=== PATIENT | female | born 1950 | race Caucasian/White ===

== ENCOUNTER → 2016-04-18 | Outpatient (CLI) | payer OTHER, MEDICARE | LOC: FIMAGING 12:53 | DX: Z12.31 Encounter for screening mammogram for malignant neoplasm of breast (principal) | CPT/HCPCS: G0202 ==

== ENCOUNTER 2017-01-06 16:06 | Emergency (ER) | payer OTHER, MEDICARE ==
[2017-01-06 16:19] VITALS: RESP 16
[2017-01-06 16:20] VITALS: TEMP 98.5
--- NOTE | 2017-01-06 16:40 | EDPHY ---
H & P Time Seen by Provider: 01/06/17 16:27 HPI/ROS: CHIEF COMPLAINT: Right leg swelling HISTORY OF PRESENT ILLNESS: The patient is a 66 year old female on hormone replacement therapy and smoker who presents emergency department with right lower extremity swelling. This is been present for the past 2 days. She has no pain. No recent trauma. No recent travel. No fevers or chills. No chest pain or shortness of breath. The patient had laboratory studies and ultrasound performed by primary care physician Dr. Crow. She was sent to the emergency department because of a positive ultrasound. REVIEW OF SYSTEMS: My complete review of systems is negative except as mentioned in the HPI. Past Medical/Surgical History: Includes hypertension, hormone replacement therapy Past surgical history: Includes recent gynecologic cyst removal Social history: The patient smokes Smoking Status: Heavy smoker Physical Exam: Vitals noted. GENERAL: Well-appearing, in no acute distress, alert. HEENT: Eyes normal to inspection, normal pharynx, no signs of dehydration. NECK: No thyromegaly, no lymphadenopathy, supple. RESPIRATORY: Clear to auscultation bilaterally, no rales, rhonchi or wheezing. CVS: Regular rate and rhythm, no rubs, murmurs, or gallops. ABDOMEN: Soft, nontender, nondistended, no organomegaly. BACK: Normal to inspection, no CVA tenderness. SKIN: Normal color, no rash, warm, dry. No pallor. EXTREMITIES: Mild right lower extremity pedal edema, no calf tenderness, no Homans sign or cords, no joint swelling. NEURO/PSYCH: Alert and oriented x3, normal mood and affect, normal motor sensory exam. Constitutional: Initial Vital Signs Temperature (C) 36.9 C 01/06/17 16:15 Heart Rate 85 01/06/17 16:15 Respiratory Rate 16 01/06/17 16:15 Blood Pressure 129/78 H 01/06/17 16:15 O2 Sat (%) 98 01/06/17 16:15 O2 Delivery Mode Room Air Allergies/Adverse Reactions: codeine Allergy (Unknown, Verified 07/05/14 09:34) Nausea, passes out Home Medications: Medication Instructions Recorded Lisinopril [Zestril] 10 mg PO DAILY 07/05/14 Naproxen Sodium [Aleve] 220 mg PO DAILY 07/05/14 [place]-3 Fatty Acids [Fish Oil] 1,000 mg PO DAILY 07/05/14 Psyllium Husk [Metamucil] 1 cap PO DAILY 07/05/14 RX: Bupropion HCl [Wellbutrin Xl] 300 mg PO DAILY 07/05/14 RX: Cholecalciferol (Vitamin D3) 2,000 unit PO DAILY 07/05/14 [Vitamin D3] RX: Estradiol 0.75 mg PO DAILY 07/05/14 RX: Hydrochlorothiazide [HCTZ (*)] 12.5 mg PO DAILY 07/05/14 medroxyPROGESTERone ACETATE 5 mg PO DAILY 07/05/14 [Provera 5 mg] Apixaban [Eliquis] 10 mg PO BID #14 tab 01/06/17 Medical Decision Making - Diagnostics Imaging Results: Imaging Impressions Extremity Venous Study 01/06/17 14:37 Impression: High popliteal DVT extending into the mid calf. Results called to Dr. Crow at 3:05 PM Chest X-Ray 01/06/17 16:41 Impression: Normal. No evidence for pulmonary infarction. ED Course/Re-evaluation: I reviewed the patient's ultrasound report. It is noted that she has a high popliteal DVT extending to the mid calf. I discussed this result with the patient. I discussed the case with Dr. Crow. He recommended the patient have an EKG and chest x-ray prior to discharge from the emergency department. These were ordered. EKG shows normal sinus rhythm, normal rate, normal axis, normal intervals. There are no ST or T-wave abnormalities. EKG is normal as interpreted by me. Chest x-ray: No acute disease I reviewed the patient's laboratory studies from earlier today. Her renal function is normal. Patient was noted to have a elevated D dimer I discussed all results with the patient. I answered her questions. She is given warnings prior to leaving. She is given a dose of Eliquis prior to leaving the emergency department. She was given a prescription for Eliquis 10 mg twice daily. This will be followed by Eliquis 5 mg twice daily. This will be read by primary care physician. She is given instructions to follow up with primary care physician in 1-2 days. Differential Diagnosis: My differential includes but is not limited to DVT, pulmonary embolus, cellulitis, trauma, factor 5 Leiden, protein S deficiency Departure - Departure Disposition: Home, Routine, Self-Care Clinical Impression: DVT (deep venous thrombosis) Qualifiers: DVT location: lower extremity Affected thrombotic vein of extremity: popliteal Chronicity: acute Laterality: right Qualified Code(s): I82.431 - Acute embolism and thrombosis of right popliteal vein Condition: Good Instructions: Deep Venous Thrombosis (ED) Additional Instructions: Your ultrasound showed a DVT. This will need to be treated with medication. Both smoking and hormone replacement therapy are risk factors for DVT formation. You been started on a medication called Eliquis. You will take 10 mg twice a day for the next 7 days. The you will then take Eliquis 5 mg twice a day moving forward. Your primary care physician needs to write a prescription for your treatment after the 1st 7 days. Referrals: Micheal Pedro MD [Primary Care Provider] - 2-3 days, call for appt. Prescriptions: Apixaban [Eliquis] 10 mg PO BID #14 tab
[2017-01-06] MEDS ORDERED: APIXABAN 5 MG TAB PO ONE (16:45)
--- NOTE | 2017-01-06 17:00 | CPEKG ---
Heart Rate: 71 RR Interval: 845 P-R Interval: 156 QRSD Interval: 100 QT Interval: 432 QTC Interval: 470 P [place]: 67 QRS [place]: 16 T Wave [place]: 63 EKG Severity - OTHERWISE NORMAL ECG - EKG Impression: SINUS RHYTHM EKG Impression: LOW VOLTAGE IN FRONTAL LEADS Electronically Signed By: Kaye Davis 06-Jan-2017 20:04:28
[2017-01-06 17:09] VITALS: BP 130/87; PULSE 80; O2SAT 96
== END 2017-01-06 17:19 | disposition home or self-care (01) ==
LOC: EDSTATUS 16:07
DX: I82.431 Acute embolism and thrombosis of right popliteal vein (principal); F17.200 Nicotine dependence, unspecified, uncomplicated; I10 Essential (primary) hypertension

== ENCOUNTER → 2017-03-01 | Outpatient (CLI) | payer OTHER, MEDICARE | LOC: FIMAGING 16:11 | PROVIDERS: ATTEND Internal Medicine | DX: M25.471 Effusion, right ankle (principal); Z86.718 Personal history of other venous thrombosis and embolism ==

== ENCOUNTER → 2017-04-17 | Outpatient (CLI) | payer OTHER, MEDICARE | LOC: FIMAGING 11:43 | PROVIDERS: ATTEND Nurse Practitioner Obstetrics & Gynecology | DX: Z12.31 Encounter for screening mammogram for malignant neoplasm of breast (principal) ==

== ENCOUNTER → 2017-08-28 | Outpatient (CLI) | payer OTHER, MEDICARE | LOC: BMCIMAGING 08:11 | PROVIDERS: ATTEND Physician Assistant | DX: M17.0 Bilateral primary osteoarthritis of knee (principal) ==

== ENCOUNTER → 2017-12-26 | Outpatient (CLI) | payer OTHER, MEDICARE | LOC: FIMAGING 08:39 | PROVIDERS: ATTEND Internal Medicine | DX: R22.1 Localized swelling, mass and lump, neck (principal); Z86.718 Personal history of other venous thrombosis and embolism; M71.21 Synovial cyst of popliteal space [Baker], right knee ==

== ENCOUNTER → 2018-02-16 | Outpatient (CLI) | payer OTHER, MEDICARE | LOC: FIMAGING 08:23 | PROVIDERS: ATTEND Orthopaedic Surgery | DX: M17.11 Unilateral primary osteoarthritis, right knee (principal) ==

== ENCOUNTER 2018-03-05 12:15 | Inpatient (IN) | payer OTHER, MEDICARE ==
--- NOTE | 2018-03-19 06:23 | PDHPUP ---
History & Physical Update H&P update statement: This history and physical update is based on an assessment of the patient which was completed after admission or registration (within 24 hours), but prior to the surgery/procedure. H&P update: no change in patient's condition since H&P completed
--- NOTE | 2018-03-19 06:24 | PDIAF ---
- Diagnosis Diagnosis: right knee djd Code Status: Full Code - Medication Management Discharge Medications: electronically signed and located in the Home Medication List. - Orders Services needed: Home Care, Physical Therapy Home Care Face to Face: I certify that this patient was under my care and that I had the required [id number] encounter meeting the encounter requirements on the discharge day. My findings support the fact that the patient is homebound as defined in Home Care Face to Face Continued: CMS Chapter 7 Medicare Benefits Manual 30.1.1 , The condition of the patient is such that there exists a normal inability to leave home and consequently, leaving home would require a considerable and taxing effort. Isolation Type: None Diet Recommendation: no restrictions on diet Diet Texture: Regular Texture Diet Additional Instructions: TOTAL JOINT ARTHROPLASTY DISCHARGE INSTRUCTIONS 1. Your surgeon follows the [facility] protocol for reducing your risk of DVT (blood clots) following surgery. Medication will be ordered to prevent blood clots. A sudden increase in calf pain and/or swelling could indicate a blood clot in your leg. If this occurs, please call your surgeon or his/her diagnostic assistant. An ultrasound of the leg may be necessary to diagnose a blood clot. If you have conditions that make you a higher risk for blood clots, your surgeon may use more aggressive ways to prevent them. Notify your surgeon if you think you are a high risk for blood clots. 2. Wear your white surgical stockings (JENNIE hose) for 2 weeks. This decreases your swelling and may help prevent blood clots. It is ok to remove JENNIE hose at night time to give your legs a break. 3. Swelling and bruising in the surgical leg is common. If you feel that it is excessive, please notify your surgeon. 4. Elevate your surgical leg with the ankle above the hip several times every day. Please keep the leg straight when you elevate by putting pillows under your foot. Do not put pillows under your knee. This will make being able to fully straighten more difficult. This is uncomfortable, but try to do it as much as possible. 5. For total knee replacements use compressive wrap on your knee for 3-5 days after surgery, then you can discontinue it. 6. Use a walker or crutches for 1-2 weeks. Progress your weight-bearing as tolerated. You may start to use a cane when you feel stable and safe. 7. You will receive physical therapy instructions in the hospital. Continue those exercises at home. There are additional exercises in the total joint booklet you were given before surgery. Outpatient physical therapy will begin 7- 10 days after surgery. Please schedule this in advance. 8. Use ice on your knee at least 3-5 times every day for 30 minutes. This helps reduce pain and swelling. Also use it at night before falling asleep. 9. Leave your surgical dressing in place for 2 weeks. Your dressing is water resistant, but not waterproof. Cover it with Saran Wrap or Jmyey-m-Efmq before showering. You may shower as soon as you feel safe entering a shower. If you notice bleeding from your incision 2 or 3 days after surgery, please notify your surgeon. 10. Due to narcotics, decreased activity and altered diet, most patients experience constipation after surgery. Use nxva-zkj-grwykes stool softeners while you are on narcotics. 11. You may drive a car when you are comfortable bearing weight, have good muscular control of your leg and are off narcotics. This usually occurs 2-4 weeks after surgery, depending on which leg was operated on. 12. If there are questions not addressed here, please refer the [facility] book given for more information. If you still have questions, please contact your surgeon s office. 13. If you have a life-threatening emergency, please call 911 and go to the emergency room immediately. For non-life threatening emergencies, please call your physicians office for advice before going to the emergency room. - Follow Up Care Current Providers and Referrals: Micheal Pedro MD [Primary Care Provider] - Jong Baires MD [Medical Doctor] -
[2018-03-19] MEDS ORDERED: LR 1,000 ML IV ONE (07:12)
[2018-03-19] MEDS ORDERED: THROMBIN (BOVINE) 5,000 UNIT VIAL TP ONE (07:33)
[2018-03-19] MEDS ORDERED: CALCIUM CHLORIDE 1 GM/10 ML INJ ONE (07:34)
[2018-03-19] MEDS ORDERED: ceFAZolin 1 GM/5 ML SYR ONE (07:35)
[2018-03-19] MEDS ORDERED: ROPIVACAINE 0.2% 80 MG, EPINEPHrine 0.2 MG, KETOROLAC TROMETHAMINE 30 MG in SYRINGE 0 ML IU ONE (08:00)
[2018-03-19] MEDS ORDERED: DEXAMETHASONE 4 MG/ML VIAL IVP ONE (08:00)
[2018-03-19] MEDS ORDERED: ACETAMINOPHEN 325 MG TAB PO ONE (08:00)
[2018-03-19] MEDS ORDERED: FAMOTIDINE 20 MG TAB PO ONE (08:00)
[2018-03-19] MEDS ORDERED: TRANEXAMIC ACID 1,000 MG in NS 100 ML IV ONE (08:00)
[2018-03-19] MEDS ORDERED: VANCOMYCIN PHARMACY TO DOSE MISC ONE (08:00)
[2018-03-19] MEDS ORDERED: BUPIVACAINE/DEXTROSE 7.5MG/ML 2 ML SPINAL AMP SP ONE (08:44)
[2018-03-19] MEDS ORDERED: PROPOFOL/EMULSION 500 MG/50 ML BOTTLE IV ONE ×2 (08:44→10:22)
[2018-03-19] MEDS ORDERED: MIDAZOLAM 2 MG/2 ML VIAL IVP ONE (08:50)
--- NOTE | 2018-03-19 08:51 | PDANEPAE ---
ANE History of Present Illness right knee pain ANE Past Medical History - Cardiovascular History Hx Hypertension: Yes Hx Arrhythmias: No Hx Chest Pain: No Hx Coronary Artery / Peripheral Vascular Disease: No Hx CHF / Valvular Disease: No Hx Palpitations: No - Pulmonary History Hx COPD: No Hx Asthma/Reactive Airway Disease: No Hx Recent Upper Respiratory Infection: No Hx Oxygen in Use at Home: No Hx Sleep Apnea: No Sleep Apnea Screening Result - Last Documented: Positive Pulmonary History Comment: hot tub lung - Neurologic History Hx Cerebrovascular Accident: No Hx Seizures: No Hx Dementia: No - Endocrine History Hx Diabetes: No Hypothyroid: No Hyperthyroid: No Obesity: mild - Renal History Hx Renal Disorders: No - Liver History Hx Hepatic Disorders: No - Neurological & Psychiatric Hx Hx Neurological and Psychiatric Disorders: Yes Neurological / Psychiatric History Comment: wellbutrin - Cancer History Hx Cancer: No - Congenital Disorder History Hx Congenital Disorders: No - GI History GERD: no Hx Gastrointestinal Disorders: No - Other Health History Other Health History: partial upper with case. hx of blood clots in right leg - Chronic Pain History Chronic Pain: No (lower back) - Surgical History Prior Surgeries: shoulder sx. knee scopes ANE Review of Systems Review of systems is: negative Review of Systems: - Exercise capacity Exercise capacity: >=4 METS METS (RN): 4 METS ANE Patient History - Allergies Allergies/Adverse Reactions: codeine Allergy (Unknown, Verified 03/12/18 11:08) Nausea, passes out Penicillins Allergy (Verified 03/12/18 11:08) ITCH - Home Medications Home Medications: Aspirin EC [Aspirin EC 81 mg (*)] 162 mg PO DAILY 03/05/18 [Last Taken 03/05/18] Bupropion HCl [Wellbutrin Xl] 300 mg PO DAILY 03/05/18 [Last Taken 03/19/18] Herbals/Supplements -Info Only 1 ea PO DAILY 03/05/18 [Last Taken 03/19/18] Hydrochlorothiazide [Hydrochlorothiazide] 25 mg PO DAILY 03/05/18 [Last Taken ] Lisinopril [Lisinopril] 10 mg PO DAILY 03/05/18 [Last Taken 03/19/18] - NPO status NPO Status: no food or drink >8 hours NPO Since - Liquids (Date): 03/18/18 NPO Since - Liquids (Time): 23:00 NPO Since - Solids (Date): 03/18/18 NPO Since - Solids (Time): 23:00 - Anes Hx Anes Hx: no prior problems - Smoking Hx Smoking Status: Former smoker - Family Anes Hx Family Anes Hx: none Family Hx Anesthesia Complications: none ANE Labs/Vital Signs - Vital Signs Vital Signs: reviewed preoperatively; see RN documention for details Blood Pressure: 101/71 Heart Rate: 70 Respiratory Rate: 22 O2 Sat (%): 93 Height: 165.1 cm Weight: 84.368 kg ANE Physical Exam - Airway Neck exam: FROM Mallampati Score: Class 2 Mouth exam: normal dental/mouth exam - Pulmonary Pulmonary: no respiratory distress - Cardiovascular Cardiovascular: regular rate and rhythym - ASA Status ASA Status: II ANE Anesthesia Plan Anesthesia Plan: spinal Regional Anesthesia: adductor canal FNB
[2018-03-19] MEDS ORDERED: ceFAZolin 2 GM/DEXTROSE 100 ML IV ONE (09:30)
[2018-03-19] MEDS ORDERED: ROPIVACAINE HCL 150 MG/30 ML INJ ONE (11:04)
[2018-03-19] MEDS ORDERED: BISACODYL 10 MG SUPP PR PRN (11:07)
[2018-03-19] MEDS ORDERED: DIPHENOXYLATE/ATROPINE LOMOTIL 1 TAB PO PRN (11:07)
[2018-03-19] MEDS ORDERED: TEMAZEPAM 15 MG CAP PO PRN (11:07)
[2018-03-19] MEDS ORDERED: ONDANSETRON DISINTEGRATING 4 MG TAB PO PRN (11:07)
[2018-03-19] MEDS ORDERED: CYCLOBENZAPRINE 10 MG TAB PO PRN (11:07)
[2018-03-19] MEDS ORDERED: ONDANSETRON 4 MG/2 ML VIAL IVP PRN ×2 (11:07→12:14)
[2018-03-19] MEDS ORDERED: PROMETHAZINE HCL 25 MG SUPPR PR PRN (11:07)
[2018-03-19] MEDS ORDERED: MAGNESIUM HYDROXIDE 30 ML UDCUP PO PRN (11:07)
[2018-03-19] MEDS ORDERED: LACTULOSE 20 GM/30 ML UDCUP PO PRN (11:07)
[2018-03-19] MEDS ORDERED: diphenhydrAMINE 25 MG CAP PO PRN (11:07)
[2018-03-19] MEDS ORDERED: METOCLOPRAMIDE 10 MG/2 ML VIAL IVP PRN ×2 (11:07→12:14)
[2018-03-19] MEDS ORDERED: POLYETHYLENE GLYCOL 3350 17 GM PKT PO PRN (11:07)
[2018-03-19] MEDS ORDERED: PROMETHAZINE HCL 25 MG/ML INJ IVP PRN ×2 (11:07→12:14)
--- NOTE | 2018-03-19 11:07 | POSTOPPROG ---
Post Op Note Date of Operation: 03/19/18 Surgeon: Jong Baires Chuck Splitter: madan Anesthesiologist: matthew Anesthesia: Spinal Pre-op Diagnosis: right knee djd Post-op Diagnosis: same Indication: same Procedure: right tka Inf/Abcess present in the surg proc area at time of surgery?: No Depth: Deep Incisional (Fascial) EBL: 100-500
[2018-03-19] MEDS ORDERED: LR 1,000 ML IV SCH (11:30)
[2018-03-19] MEDS ORDERED: LR 500 ML IV PRN (12:14)
[2018-03-19] MEDS ORDERED: LABETALOL HCL 5 MG/ML 20 ML MDV IVP PRN (12:14)
[2018-03-19] MEDS ORDERED: ACETAMINOPHEN 500 MG TAB PO PRN (12:14)
[2018-03-19] MEDS ORDERED: NALOXONE HCL 0.4 MG/ML INJ IVP PRN (12:14)
[2018-03-19] MEDS ORDERED: DEXAMETHASONE 4 MG/ML VIAL IVP PRN (12:14)
[2018-03-19] MEDS ORDERED: MEPERIDINE 25 MG/0.5 ML AMP IVP PRN (12:14)
[2018-03-19] MEDS ORDERED: HYDROmorphONE/DILAUDID 2 MG/ML INJ IVP PRN (12:14)
[2018-03-19] MEDS ORDERED: ALBUTEROL 3 ML DEYVIAL IH PRN (12:14)
[2018-03-19] MEDS ORDERED: PHENYLEPHRINE HCL 100 MCG/ML SYR IVP PRN (12:14)
[2018-03-19] MEDS ORDERED: fentaNYL 100 MCG/2 ML INJ IVP PRN (12:14)
[2018-03-19] MEDS ORDERED: oxyCODONE IR 5 MG TAB PO PRN (12:14)
--- NOTE | 2018-03-19 13:08 | PDMN ---
Medical Necessity Medical necessity: [facility] S700 Knee Arthroplasty, Total, A-2days: 67 yo sp R TKA. IP status for >65 years plus hx HTN, +CLAUDIA, 'hot tub lung,' mild obesity, DVTs
[2018-03-19] MEDS: TRANEXAMIC ACID 650 MG TAB PO SCH ×2 (13:20→21:30)
[2018-03-19] MEDS: ACETAMINOPHEN 325 MG TAB PO SCH ×3 (13:21→23:57)
--- NOTE | 2018-03-19 16:45 | POSTANESTH ---
Post Anesthetic Evaluation Cardiovascular Status: Normal, Stable Respiratory Status: Normal, Stable Level of Consciousness/Mental Status: Can Participate in Eval Pain Control: Adequate, Prn Tx Ordered Nausea/Vomiting Control: Adequate, Prn Tx Ordered Complications Possibly Related to Anesthesia: None Noted
[2018-03-19] MEDS: oxyCODONE IR 5 MG TAB PO PRN ×3 (16:50→21:28)
[2018-03-19] MEDS: ceFAZolin 2 GM/DEXTROSE 100 ML IV SCH (18:10)
[2018-03-19] MEDS: SENNOSIDES/DOCUSATE SODIUM TAB PO SCH (21:30)
[2018-03-19] MEDS: FAMOTIDINE 20 MG TAB PO SCH (21:43)
[2018-03-19] MEDS: ASPIRIN 325 MG TAB PO SCH (21:43)
[2018-03-20] MEDS: ceFAZolin 2 GM/DEXTROSE 100 ML IV SCH (00:27)
[2018-03-20] MEDS: oxyCODONE IR 5 MG TAB PO PRN ×4 (00:28→12:04)
[2018-03-20] MEDS: ACETAMINOPHEN 325 MG TAB PO SCH ×2 (04:57→12:05)
[2018-03-20] MEDS: TRANEXAMIC ACID 650 MG TAB PO SCH (04:57)
--- NOTE | 2018-03-20 07:44 | PDIAF ---
- Diagnosis Diagnosis: right knee djd Code Status: Full Code - Medication Management Discharge Medications: electronically signed and located in the Home Medication List. - Orders Services needed: Home Care, Physical Therapy Home Care Face to Face: I certify that this patient was under my care and that I had the required [id number]-ivvk encounter meeting the encounter requirements on the discharge day. My findings support the fact that the patient is homebound as defined in Home Care Face to Face Continued: CMS Chapter 7 Medicare Benefits Manual 30.1.1 , The condition of the patient is such that there exists a normal inability to leave home and consequently, leaving home would require a considerable and taxing effort. Isolation Type: None Diet Recommendation: no restrictions on diet Diet Texture: Regular Texture Diet Additional Instructions: TOTAL JOINT ARTHROPLASTY DISCHARGE INSTRUCTIONS 1. Your surgeon follows the [facility] protocol for reducing your risk of DVT (blood clots) following surgery. Medication will be ordered to prevent blood clots. A sudden increase in calf pain and/or swelling could indicate a blood clot in your leg. If this occurs, please call your surgeon or his/her food and beverage assistant manager. An ultrasound of the leg may be necessary to diagnose a blood clot. If you have conditions that make you a higher risk for blood clots, your surgeon may use more aggressive ways to prevent them. Notify your surgeon if you think you are a high risk for blood clots. 2. Wear your white surgical stockings (JENNIE hose) for 2 weeks. This decreases your swelling and may help prevent blood clots. It is ok to remove JENNIE hose at night time to give your legs a break. 3. Swelling and bruising in the surgical leg is common. If you feel that it is excessive, please notify your surgeon. 4. Elevate your surgical leg with the ankle above the hip several times every day. Please keep the leg straight when you elevate by putting pillows under your foot. Do not put pillows under your knee. This will make being able to fully straighten more difficult. This is uncomfortable, but try to do it as much as possible. 5. For total knee replacements use compressive wrap on your knee for 3-5 days after surgery, then you can discontinue it. 6. Use a walker or crutches for 1-2 weeks. Progress your weight-bearing as tolerated. You may start to use a cane when you feel stable and safe. 7. You will receive physical therapy instructions in the hospital. Continue those exercises at home. There are additional exercises in the total joint booklet you were given before surgery. Outpatient physical therapy will begin 7- 10 days after surgery. Please schedule this in advance. 8. Use ice on your knee at least 3-5 times every day for 30 minutes. This helps reduce pain and swelling. Also use it at night before falling asleep. 9. Leave your surgical dressing in place for 2 weeks. Your dressing is water resistant, but not waterproof. Cover it with Saran Wrap or Llonq-s-Xhxc before showering. You may shower as soon as you feel safe entering a shower. If you notice bleeding from your incision 2 or 3 days after surgery, please notify your surgeon. 10. Due to narcotics, decreased activity and altered diet, most patients experience constipation after surgery. Use yeus-dfo-osxrmnm stool softeners while you are on narcotics. 11. You may drive a car when you are comfortable bearing weight, have good muscular control of your leg and are off narcotics. This usually occurs 2-4 weeks after surgery, depending on which leg was operated on. 12. If there are questions not addressed here, please refer the [facility] book given for more information. If you still have questions, please contact your surgeon s office. 13. If you have a life-threatening emergency, please call 911 and go to the emergency room immediately. For non-life threatening emergencies, please call your physicians office for advice before going to the emergency room. - Follow Up Care Current Providers and Referrals: Micheal Pedro MD [Primary Care Provider] - Jong Baires MD [Medical Doctor] -
--- NOTE | 2018-03-20 07:46 | SOAPPROG ---
SOAP Progress Note Assessment/Plan: Assessment: s/p tka Plan: d/c home dvt precautions reviewed f/u at two weeks seek attn for increasing symptoms 03/20/18 07:44 Subjective: mild pain no cp or sob Objective: Vital Signs Temp Pulse Resp BP Pulse Ox 36.7 C 56 L 16 105/65 95 03/20/18 04:00 03/20/18 04:00 03/20/18 04:00 03/20/18 04:00 03/20/18 04:00 Laboratory Results 03/20/18 04:25 03/19/18 03/20/18 03/21/18 05:59 05:59 05:59 Intake Total 2185 Output Total 730 Balance 1455 dressing intact intact pf,df,ehl toes warm and pink neg homans kailyn xrays stable anatomic alignement, no fx or lucency ICD10 Worksheet Patient Problems: Problems Problem Status Onset Arthritis of knee Acute - ICD10 Problem Qualifiers (1) Arthritis of knee
[2018-03-20] MEDS: ASPIRIN 325 MG TAB PO SCH (08:06)
[2018-03-20] MEDS: FAMOTIDINE 20 MG TAB PO SCH (08:07)
[2018-03-20] MEDS: SENNOSIDES/DOCUSATE SODIUM TAB PO SCH (08:08)
--- NOTE | 2018-03-20 08:58 | ASMTLACE ---
LACE Length of stay for Answers: 1 day current admission Acuity / Level of Answers: Yes Care: Did the patient have an inpatient admission? Comorbidities - select Answers: Other Notes: HTN all that apply # of Emergency department Answers: 0 visits in the last 6 months Score: 5 Date Signed: 03/20/2018 08:57 AM Electronically Signed By:Molly Baker RN
--- NOTE | 2018-03-20 08:59 | ASMTDCNOTE ---
Case Management Discharge Discharge Order Complete? Answers: Yes Transportation Arranged Answers: Family/Friends Discharge Comments Notes: Patient discharged home with no needs. PT cleared for home. to transport Date Signed: 03/20/2018 08:58 AM Electronically Signed By:Molly Baker RN
[2018-03-20] MEDS ORDERED: HYDROCHLOROTHIAZIDE 25 MG TAB PO SCH (09:00)
[2018-03-20] MEDS ORDERED: LISINOPRIL 10 MG TAB PO SCH (09:00)
[2018-03-20] MEDS ORDERED: buPROPion XL 150 MG TAB PO SCH (09:00)
[2018-03-20 12:33] VITALS: BP 128/76
--- NOTE | 2018-03-21 14:03 | GDS ---
[f rep st] DISCHARGE SUMMARY ADMIT DIAGNOSIS: Right knee degenerative joint disease. DISCHARGE DIAGNOSIS: Right knee degenerative joint disease. PROCEDURE: Right total knee arthroplasty. HISTORY OF PRESENT ILLNESS: The patient is a 67-year-old woman who presents today for an elective to marzena knee replacement on her right side. HOSPITAL COURSE: The patient was admitted overnight after uncomplicated total knee arthroplasty. Imelda saucedo tolerated the procedure well. At the time of discharge, she is tolerating an oral diet. Pain is w ell controlled on oral medicines. She is voiding without difficulty. Dressing is clean, dry, and in tact. She has no calf swelling or tenderness. X-rays reveal an anatomic positioning. No fracture o r lucency. DISCHARGE ACTIVITY: Weightbearing as tolerated. Range of motion as tolerated. Keep the dressing in tact. Follow up in 2 weeks. Seek attention for increasing redness, swelling, drainage. DISCHARGE MEDICATIONS: Oxycodone 5 mg 1-2 every 6 hours p.r.n. pain, aspirin 325 mg p.o. daily for 6 weeks. /[id number]/MODL
--- NOTE | 2018-03-21 14:08 | GOP ---
[f rep st] OPERATIVE REPORT DATE OF OPERATION: 03/19/2018 SURGEON: Jong Baires MD NEUROSURGEON: Jong Baires MD. COMPENSATION EXPERT: Damion Baca, [employer]ANCH OPERATION EVALUATION MANAGER, [facility], who was a medical necessity for the entirety of the case. PREOPERATIVE DIAGNOSIS: Right knee degenerative joint disease. POSTOPERATIVE DIAGNOSIS: Right knee degenerative joint disease. PROCEDURE PERFORMED: Right total knee arthroplasty. FINDINGS: SPECIMENS: To Pathology, the bony cuts. INDICATIONS: The patient is a 67-year-old woman with end-stage arthritis to her right knee. Clinica l and radiographic features are consistent with this. She has failed all attempts at conservative ma nagement. I have, therefore, recommended operative intervention with total knee arthroplasty being r ecommended. She understood this and wished to proceed. DESCRIPTION OF PROCEDURE: The patient was identified in the preanesthesia area. The right knee liliam rly demarcated as the operative site with indelible marker. She was given 2 g of Ancef intravenously in route to the operative suite. In the OR, spinal anesthetic was placed, followed by additional se dation. She was positioned in the supine position. A tourniquet was applied to the upper thigh. Ap propriate time-out procedure was carried out. The limb was then sterilely prepped and draped in the usual fashion. Tourniquet was inflated after exsanguination of the limb to 275 mmHg. A standard ant erior midline incision was made, followed by a separate percutaneous incision of the mid tibia. The femoral and tibial reference rays were affixed. Subperiosteal elevation was carried out to the mid c oronal plane on both the medial and lateral aspects and retractors were placed protecting the collate ral structures. The bony landmarks of the knee were entered into the computer in standard fashion. The marginal osteophytes were withdrawn and the knee balanced using the MAKOplasty software. Using t MAKOplasty software, resections were made for a size 4 femur, size 4 tibia. Trial reduction over a 4 x 9 mm polyethylene spacer allowed full extension and flexion to 130 degrees without instability through the flexion-extension arc. The trial components were withdrawn. The cut surfaces were thoro ughly cleansed and the tibia and femoral components press fit in standard fashion. The size 4 x 9 mm polyethylene spacer was placed and confirmed to be fully seated. Attention was then turned to the p atella, which was everted, cut in a freehand cutting technique. Drill holes were made for a size 35 mm patella and this was press fit as well. The patella tracked centrally through the trochlear groov e. The wound was copiously irrigated. The joint capsule and structures injected with a joint cockta il of ropivacaine, Toradol and epinephrine. The medial parapatellar arthrotomy was closed using #1 E thibond suture. The knee instilled with platelet-rich plasma. Subcutaneous tissue closed using 2-0 Monocryl and the skin was stapled. A sterile dressing was applied. The patient was awakened, extuba tirso and taken to the recovery room in good, stable condition. TOTAL TOURNIQUET TIME: Forty-five minutes. COMPLICATIONS: None. IMPLANTS: [place] [employer] posterior stabilized femoral component size 4, size 4 tibia, 4 x 9 mm po lyethylene spacer, 35 mm asymmetric patella. DISPOSITION: To the recovery room and then the floor. She is weightbearing as tolerated. Follow st palm total knee recovery. /[id number]/MODL
== END 2018-03-20 13:22 | disposition home or self-care (01) | DRG 470 ==
LOC: F3N 03-19 06:53
PROVIDERS: ADMIT Orthopaedic Surgery; ATTEND Orthopaedic Surgery
DX: M17.11 Unilateral primary osteoarthritis, right knee (principal); I10 Essential (primary) hypertension; G47.33 Obstructive sleep apnea (adult) (pediatric); E66.9 Obesity, unspecified; Z86.718 Personal history of other venous thrombosis and embolism
CPT/HCPCS: 97116-GP; 97161-GP; 97165-GO; 97530-GP; J0171; J0690; J1100; J1885; J2250; J2704; J2795

== ENCOUNTER → 2018-03-06 | Outpatient (CLI) | payer OTHER, MEDICARE | LOC: FIMAGING 09:17 | PROVIDERS: ATTEND Internal Medicine | DX: M71.22 Synovial cyst of popliteal space [Baker], left knee (principal); R25.2 Cramp and spasm; Z86.718 Personal history of other venous thrombosis and embolism ==

== ENCOUNTER → 2018-05-02 | Outpatient (CLI) | payer OTHER, MEDICARE | LOC: BMCIMAGING 10:38 | PROVIDERS: ATTEND Orthopaedic Surgery | DX: Z47.1 Aftercare following joint replacement surgery (principal); Z96.651 Presence of right artificial knee joint ==

== ENCOUNTER → 2018-05-22 | Outpatient (CLI) | payer OTHER, MEDICARE | LOC: FIMAGING 08:49 | PROVIDERS: ATTEND Internal Medicine | DX: Z12.31 Encounter for screening mammogram for malignant neoplasm of breast (principal) ==

== ENCOUNTER → 2018-05-30 | Outpatient (CLI) | payer OTHER, MEDICARE | LOC: BMCIMAGING 09:00 | PROVIDERS: ATTEND Orthopaedic Surgery | DX: M25.551 Pain in right hip (principal) ==

== ENCOUNTER → 2018-06-07 | Outpatient (CLI) | payer OTHER, MEDICARE | LOC: BMCIMAGING 09:36 | PROVIDERS: ATTEND Orthopaedic Surgery | DX: M25.551 Pain in right hip (principal) ==

== ENCOUNTER → 2018-06-12 | Outpatient (CLI) | payer OTHER, MEDICARE | LOC: BMCIMAGING 09:27 | PROVIDERS: ATTEND Podiatrist Foot & Ankle Surgery | DX: M79.672 Pain in left foot (principal); M79.671 Pain in right foot; M20.12 Hallux valgus (acquired), left foot; M20.11 Hallux valgus (acquired), right foot ==

== ENCOUNTER → 2018-06-13 | Outpatient (CLI) | payer OTHER, MEDICARE | LOC: BMCIMAGING 14:31 | PROVIDERS: ATTEND Orthopaedic Surgery | DX: Z47.1 Aftercare following joint replacement surgery (principal); Z96.651 Presence of right artificial knee joint ==